=== PATIENT | male | born 1950 | race Caucasian/White ===

== ENCOUNTER 2021-01-22 09:49 | Outpatient (CLI) | payer MEDICARE, BC | END 2021-01-22 09:50 | disposition home or self-care (01) | LOC: CSHCT 09:49 | PROVIDERS: ATTEND Urology | DX: N18.6 End stage renal disease (principal); Z94.0 Kidney transplant status; E21.3 Hyperparathyroidism, unspecified; Z87.442 Personal history of urinary calculi; N20.0 Calculus of kidney; K80.20 Calculus of gallbladder without cholecystitis without obstruction | CPT/HCPCS: 74176 ==

== ENCOUNTER 2025-05-12 15:23 | Outpatient (CLI) | payer MEDICARE, BC | END 2025-05-12 15:24 | disposition home or self-care (01) | LOC: CSHULT 15:23 | PROVIDERS: ATTEND Urology | DX: N20.0 Calculus of kidney (principal) | CPT/HCPCS: 76770 ==